=== PATIENT | female | born 1975 | race Two or more races ===

== ENCOUNTER 2018-02-01 05:42 | Observation (INO) | payer MEDICAID ==
--- NOTE | 2018-01-31 16:42 | PDGENHP ---
History & Physical Chief Complaint: AUB, Uterine fibroids History of Present Illness: 42 yo (3 SVDs) saw me in clinic for ongoing issues with AUB and known uterine fibroids. Current US shows 10cm uterus with two prominent fibroids - 3cm post IM fundal, and 3cm post IM body. She has tried and failed IUD (Mirena) as well as Depo and OCP's. She is interested in definitive surgical therapy. She does not have issues with sporadic or irregular bleeding - periods are just increasingly heavy and painful. H/o tubal ligation surgery in 1999. Pertinent Past, Social, Family History: H/o tubal ligation procedure 1999, otherwise 3 SABs and one EAB. Relevant Physical Exam: NAD, RRR, LCTAB. Belly soft, NT/ND. Assessment & Plan Assessment: Preop: TAMMY Trinidad, cysto. RBA discussed in clinic - consents signed in person and faxed to OR. Allergy to Amoxacillin w hives and rash, will use Clinda and Gent. Plan is to leave ovaries and remove tubes. Plan is for one night overnight stay. CARIDAD
[2018-02-01] MEDS ORDERED: GENTAMICIN SULFATE 120 MG in D5W 100 ML IV ONE (06:14)
[2018-02-01] MEDS ORDERED: CLINDAMYCIN 900 MG/DEXTROSE 50 ML IV ONE (06:14)
[2018-02-01] MEDS ORDERED: LR 1,000 ML IV ONE (06:46)
[2018-02-01] MEDS: PHENAZOPYRIDINE HCL 200 MG TAB PO SCH ×2 (06:50→10:06)
[2018-02-01] MEDS ORDERED: SCOPOLAMINE HYDROBROMIDE 1 MG/3 DAYS PATCH TD ONE (06:56)
[2018-02-01] MEDS ORDERED: MIDAZOLAM 2 MG/2 ML VIAL IVP ONE (06:56)
[2018-02-01] MEDS ORDERED: ACETAMINOPHEN 500 MG TAB PO ONE (06:56)
--- NOTE | 2018-02-01 06:58 | PDANEPAE ---
ANE History of Present Illness 42 y/o female with abnormal uterine bleeding here for robotic hysterectomy and fallopian tube removal. ANE Past Medical History - Cardiovascular History Hx Hypertension: No Hx Arrhythmias: No Hx Chest Pain: No Hx Coronary Artery / Peripheral Vascular Disease: No Hx CHF / Valvular Disease: No Hx Palpitations: No - Pulmonary History Hx COPD: No Hx Asthma/Reactive Airway Disease: No Hx Recent Upper Respiratory Infection: No Hx Oxygen in Use at Home: No Hx Sleep Apnea: No Sleep Apnea Screening Result - Last Documented: Negative Pulmonary History Comment: hx of bronchoscopies. chronic cough- no diagnosis - Neurologic History Hx Cerebrovascular Accident: No Hx Seizures: No Hx Dementia: No - Endocrine History Hx Diabetes: No - Renal History Hx Renal Disorders: No - Liver History Hx Hepatic Disorders: No - Neurological & Psychiatric Hx Hx Neurological and Psychiatric Disorders: No - Cancer History Hx Cancer: No - Congenital Disorder History Hx Congenital Disorders: No - GI History GERD: no Hx Gastrointestinal Disorders: No - Other Health History Other Health History: none - Chronic Pain History Chronic Pain: No - Surgical History Prior Surgeries: tubal ligation. bronchoscopies ANE Review of Systems Review of Systems: - Exercise capacity Exercise capacity: >=4 METS METS (RN): 4 METS ANE Patient History - Allergies Allergies/Adverse Reactions: amoxicillin Allergy (Verified 02/01/18 06:51) rash and hives - Home Medications Home medications: home medication list seen and reviewed Home Medications: NK [No Known Home Meds] 01/14/18 [Last Taken Unknown] - NPO status NPO Status: no food or drink >8 hours NPO Since - Liquids (Date): 01/31/18 NPO Since - Liquids (Time): 23:00 NPO Since - Solids (Date): 01/31/18 NPO Since - Solids (Time): 23:00 - Smoking Hx Smoking Status: Former smoker - Family Anes Hx Family Anes Hx: none Family Hx Anesthesia Complications: none ANE Labs/Vital Signs - Vital Signs Vital Signs: reviewed preoperatively; see RN documention for details Blood Pressure: 122/85 Heart Rate: 75 Respiratory Rate: 16 O2 Sat (%): 98 Height: 149.86 cm Weight: 61.235 kg ANE Physical Exam - Airway Mallampati Score: Class 3 Mouth exam: normal dental/mouth exam - Pulmonary Pulmonary: clear to auscultation - Cardiovascular Cardiovascular: regular rate and rhythym - ASA Status ASA Status: I
--- NOTE | 2018-02-01 07:06 | PDHPUP ---
History & Physical Update H&P update statement: This history and physical update is based on an assessment of the patient which was completed after admission or registration (within 24 hours), but prior to the surgery/procedure. H&P update: H&P reviewed & patient examined, no change in patient's condition since H&P completed
[2018-02-01] MEDS ORDERED: PROPOFOL 200 MG/20 ML VIAL ONE (07:07)
[2018-02-01] MEDS ORDERED: LIDOCAINE 2% 2 ML INJ ONE (07:07)
[2018-02-01] MEDS ORDERED: fentaNYL 100 MCG/2 ML INJ ONE ×3 (07:13→09:41)
[2018-02-01] MEDS ORDERED: EPINEPHrine 1 MG/ML INJ ONE (07:34)
[2018-02-01] MEDS ORDERED: BUPIVACAINE 0.25% 30 ML SDV ONE (07:34)
[2018-02-01] MEDS ORDERED: BUPIVACAINE/EPI 0.5% 30 ML SDV ONE (07:34)
[2018-02-01] MEDS ORDERED: ROCURONIUM 50 MG/5 ML VIAL ONE ×2 (07:46→08:24)
[2018-02-01] MEDS ORDERED: DEXAMETHASONE 4 MG/ML VIAL ONE (07:46)
[2018-02-01] MEDS ORDERED: METOCLOPRAMIDE 10 MG/2 ML VIAL ONE (07:46)
[2018-02-01] MEDS ORDERED: METOPROLOL TARTRATE 5 MG/5 ML INJ ONE (08:48)
[2018-02-01] MEDS ORDERED: KETOROLAC 30 MG/1 ML SDV ONE (09:16)
[2018-02-01] MEDS ORDERED: ONDANSETRON 4 MG/2 ML VIAL ONE (09:16)
[2018-02-01] MEDS ORDERED: SUGAMMADEX SODIUM 200 MG/2 ML VIAL IVP ONE (09:18)
[2018-02-01] MEDS ORDERED: LABETALOL HCL 5 MG/ML 20 ML MDV IVP PRN (09:20)
[2018-02-01] MEDS ORDERED: NALOXONE HCL 0.4 MG/ML INJ IVP PRN (09:20)
[2018-02-01] MEDS ORDERED: LR 500 ML IV PRN (09:20)
[2018-02-01] MEDS ORDERED: METOCLOPRAMIDE 10 MG/2 ML VIAL IVP PRN (09:20)
[2018-02-01] MEDS ORDERED: ACETAMINOPHEN 500 MG TAB PO PRN (09:20)
[2018-02-01] MEDS ORDERED: ONDANSETRON 4 MG/2 ML VIAL IVP PRN ×2 (09:20→10:07)
[2018-02-01] MEDS ORDERED: PROMETHAZINE HCL 25 MG/ML INJ IVP PRN (09:20)
[2018-02-01] MEDS ORDERED: MEPERIDINE 25 MG/0.5 ML AMP IVP PRN (09:20)
[2018-02-01] MEDS: fentaNYL 100 MCG/2 ML INJ IVP PRN ×2 (09:42→09:49)
--- NOTE | 2018-02-01 09:46 | POSTANESTH ---
Post Anesthetic Evaluation Respiratory Status: Normal, Stable Level of Consciousness/Mental Status: Can Participate in Eval Pain Control: Adequate, Prn Tx Ordered Nausea/Vomiting Control: Adequate, Prn Tx Ordered Complications Possibly Related to Anesthesia: None Noted
--- NOTE | 2018-02-01 09:59 | POSTOPPROG ---
Post Op Note Date of Operation: 02/01/18 Surgeon: Kirk Carias Cogeneration Technician: Doreen Garcia Anesthesia: GET(General Endotracheal) Pre-op Diagnosis: Uterine fibroids, AUB Post-op Diagnosis: Same Procedure: Vivi, BS, cysto Findings: Irregular, enlarged uterus with multiple intramural fibroids Inf/Abcess present in the surg proc area at time of surgery?: No EBL: Minimal (25cc) Complications: None Specimen(s): Uterus, cervix, bilateral fallopian tubes
--- NOTE | 2018-02-01 10:00 | SUROPNOTE ---
[facility] Operative Report - Surgery Date of Operation: 02/01/18 Surgeon: Kirk Carias Sanitation Director: Doreen Garcia Anesthesia: GET(General Endotracheal) Pre-op Diagnosis: Uterine fibroids, AUB Post-op Diagnosis: Same Procedure: RaTLH, BS, cysto Findings: Irregular, enlarged uterus with multiple intramural fibroids. Tubes with evidence of prior ligation procedure. Otherwise normal bilateral ovaries, normal appendix, no intraabdominal scar tissue. Grossly normal large and small bowel, normal appearance of liver and greater curvature of stomach. Inf/Abcess present in the surg proc area at time of surgery?: No EBL: Minimal (25cc) Complications: None Specimen(s): Uterus, cervix, bilateral fallopian tubes Technique: The patient was taken to the operating room where general anesthesia induced with an endotracheal tube. A time-out was performed. She was given weight-based antibiotics before any incisions were made. She was positioned in low lithotomy in yellow-fin stirrups and an exam under anesthesia was performed. She was prepped and draped in normal sterile fashion. A Reich catheter and uterine manipulator (VCare) were placed. Turning our attention to port placement, we began by marking and then injecting local anesthetic subcutaneously at our planned trocar sites. An 10mm incision was then made inferior to the umbilicus in the location of her prior incision. A veress needle was placed intra abdominally while tenting up on the abdominal wall. Saline drop test was used to suggest intra-abdominal placement as well as low opening insufflation pressures. The abdomen was insufflated to 15 mmHg with CO2 gas. A plastic 10 mm camera trocar was then placed into the abdominal cavity directly with ease. Camera inserted and a scan of the abdominal cavity revealed no evidence of injury upon entry. Additional lateral ports were placed evenly space in an arc from that umbilical site - 3 additional in total, 2 robotic 8mm ports and one 8mm human assist port in the LUQ. The patient was placed in steep Trendelenburg position and bowel flipped cephalad to provide excellent visualization of pelvic structures. Upon inspection of the abdomen, findings were as noted above. The robot was side-docked at the patient's right hip and instruments introduced into the abdomen under direct visualization. Monopolar scissors as well as fenestrated bipolar forceps were used. We began by directly visualizing peristalsing ureters on both sides - distant from our planned dissection sites. We first began by elevating and amputation the right fallopian tube using combination of monopolar and bipolar energy as well as cold scissors. Following this we came through the right utero-ovarian ligament and the right round - the anterior and posterior leaves of the broad ligament. Tho posterior leaf was brought down to the colpotomy cup and the anterior was brought down to the level of the peritoneal bladder reflection and then across to start the bladder flap to the midline. The uterine arteries on that side were skeletonized and cauterized, but not divided yet. We next turned our attention of the left side where the same procedure was performed in the same fashion - amputating the left tube, coming through the left lateral attachments to the uterus, and coming across with the anterior leaf of the broad on the left side to meet the dissection on the right completing the bladder flap. Then completed careful dissection of the bladder off the lower uterine segment and cervix which came down nicely with minimal scar tissue. The left uterines were skeletonized, cauterized and then divided. We lastly divided the right uterines. Following this the colpotomy cup was nicely visible circumferentially. The monopolar scissors were used to create the colpotomy - combination of cut and coag current. The uterus was removed vaginally with both fallopian tubes without issue. A ROBIN drainage bulb was placed in the vagina to maintain pneumoperitoneum during cuff closure. 180 0-Vlock was used and the vaginal cuff was closed laparoscopically with a single running stitch with care taken to include healthy bites of bilateral uterosacral ligaments to help protect against future vault prolapse. The vaginal cuff and pedicles were then irrigated with normal saline and found to be hemostatic. Both ureters were seen to be freely peristalsing, distant from any surgical sites. The robot was undocked. The reich was removed. Cystoscopy was performed confirming intact bladder with no apparent thermal or sharp injuries. Bilateral UOs demonstrated strong efflux of Pyridium-stained urine. Following this the reich was not replaced, a vaginal packing was not placed. The trocars were removed and the abdomen was desufflated. The skin incisions were closed with 40 monocryl with single subcuticular stitches and then covered with Dermabond. The patient tolerated the procedure well. All sponge, lap and needle and instrument counts were announced as correct x2. The patient was taken to the PACU in stable condition. I was scrubbed and present for the entire case.
[2018-02-01] MEDS ORDERED: ZOLPIDEM TARTRATE 5 MG TAB PO PRN (10:07)
[2018-02-01] MEDS ORDERED: ONDANSETRON DISINTEGRATING 4 MG TAB PO PRN (10:07)
[2018-02-01] MEDS ORDERED: KETOROLAC 30 MG/1 ML SDV IVP ONE (10:07)
[2018-02-01] MEDS ORDERED: HYDROmorphONE/DILAUDID 2 MG/ML INJ ONE (10:13)
[2018-02-01] MEDS ORDERED: D5W LR 1,000 ML IV SCH (10:15)
[2018-02-01] MEDS: HYDROmorphONE/DILAUDID 2 MG/ML INJ IVP PRN ×2 (10:31→10:56)
[2018-02-01] MEDS ORDERED: HYDROmorphONE/DILAUDID 1 MG/ML INJ IVP PRN (13:39)
[2018-02-01] MEDS: KETOROLAC 30 MG/1 ML SDV IVP SCH ×2 (15:23→21:28)
[2018-02-01] MEDS: ACETAMINOPHEN 500 MG TAB PO SCH (16:08)
[2018-02-01] MEDS: oxyCODONE IR 5 MG TAB PO PRN ×2 (17:55→22:00)
[2018-02-02] MEDS: ACETAMINOPHEN 500 MG TAB PO SCH ×3 (00:04→15:07)
[2018-02-02] MEDS: KETOROLAC 30 MG/1 ML SDV IVP SCH (03:32)
[2018-02-02] MEDS: oxyCODONE IR 5 MG TAB PO PRN ×2 (07:22→11:44)
[2018-02-02] MEDS ORDERED: ENOXAPARIN 30 MG/0.3 ML SYR SC SCH (09:00)
[2018-02-02] MEDS ORDERED: ENOXAPARIN 40 MG/0.4 ML SYR SC SCH (09:00)
[2018-02-02] MEDS ORDERED: KETOROLAC 30 MG/1 ML SDV IVP ONE (09:45)
[2018-02-02] MEDS: IBUPROFEN 600 MG TAB PO SCH (13:38)
[2018-02-02 13:57] VITALS: BP 124/67
--- NOTE | 2018-02-02 14:34 | SOAPPROG ---
SOAP Progress Note Assessment/Plan: Assessment: Plan: Subjective: Doing great this AM, pain controlled, no BF yet. Tolerating diet. Objective: Vital Signs Temp Pulse Resp BP Pulse Ox 36.8 C 64 17 124/67 H 96 02/02/18 13:05 02/02/18 13:05 02/02/18 13:05 02/02/18 13:05 02/02/18 07:20 02/01/18 02/02/18 02/03/18 05:59 05:59 05:59 Intake Total 1420 Output Total 495 Balance 925 Physical Exam - Physical Exam General Appearance: alert, no apparent distress Abdomen: non-tender, soft, other (Incision CDI Dermabond), No distended, No guarding ICD10 Worksheet Patient Problems: Problems Problem Status Onset Abnormal uterine bleeding (AUB) Acute Uterine fibroid Acute
--- NOTE | 2018-02-02 14:34 | PDDCSUM ---
Discharge Summary Discharge Summary: Admission Diagnoses: 1. Uterine fibroids 2. Abnormal uterine bleeding Discharge Diagnoses: 1. S/p Robotically-assisted TLH, BS, cysto 2. Same Hospital Course: Pt was admitted on the morning of surgery and underwent an uncomplicated procedure. Her reich was removed before leaving the operating room. She was started on IV pain medications that were transitioned to orals as soon as she could tolerated some diet. She was up and ambulating later on POD0. Uneventful first hospital night and was discharged home on the afternoon of POD1 in good condition. Plan to f/u with me in the office at 2 and 6 wks for postop checks. CARIDAD
== END 2018-02-02 15:30 | disposition home or self-care (01) ==
LOC: FSGY 05:42 → F3E 10:07 → FOB 11:15
PROVIDERS: ADMIT Obstetrics & Gynecology; ATTEND Obstetrics & Gynecology
PROC: 0UT9FZZ Resection of Uterus, Via Natural or Artificial Opening With Percutaneous Endoscopic Assistance (ICD-10-PCS; principal; 2018-02-01 07:15)
PROC: 8E0W4CZ Robotic Assisted Procedure of Trunk Region, Percutaneous Endoscopic Approach (ICD-10-PCS; principal; 2018-02-01 07:15)
PROC: 0TJ98ZZ Inspection of Ureter, Via Natural or Artificial Opening Endoscopic (ICD-10-PCS; principal; 2018-02-01 07:15)
PROC: 0UT7FZZ Resection of Bilateral Fallopian Tubes, Via Natural or Artificial Opening With Percutaneous Endoscopic Assistance (ICD-10-PCS; principal; 2018-02-01 07:15)
PROC: 0UTC0ZZ Resection of Cervix, Open Approach (ICD-10-PCS; principal; 2018-02-01 07:15)
DX: D25.1 Intramural leiomyoma of uterus (principal); N93.8 Other specified abnormal uterine and vaginal bleeding; Z23 Encounter for immunization
CPT/HCPCS: 58571; 90471; G0378; G0008; J0171; J1100; J1170; J1580; J1650; J1885; J2250; J2405; J2704; J2765; J3010